=== PATIENT | male | born 1970 | race Caucasian/White ===

== ENCOUNTER → 2022-05-03 08:17 | Outpatient (CLI) | payer BC, SELFPAY | PROVIDERS: PCP Internal Medicine; Referring Provider Internal Medicine; Visit Provider Internal Medicine | DX: M62.551 Muscle wasting and atrophy, not elsewhere classified, right thigh (principal); M54.16 Radiculopathy, lumbar region | CPT/HCPCS: 95886; 95909 ==

== ENCOUNTER → 2023-07-13 08:34 | Outpatient (CLI) | payer BC, SELFPAY ==
[2023-07-13 09:59] LABS: Add Manual Diff / Slide Review NO; Basophils Absolute Auto 0 /uL (0-100); Basophils Percent Auto 0.9 % (0-2); Eosinophils Absolute Auto 100 /uL (0-450); Eosinophils Percent Auto 3.1 % (2-4); Hematocrit 40.7 % (41-53); Hemoglobin 13.9 g/dL (13.5-17.5); Lymphocytes Absolute Auto 1600 /uL (1100-4500); Lymphocytes Percent Auto 33.5 % (25-40); Mean Corpuscular HGB Conc 34.1 % (30-36); Mean Corpuscular Hemoglobin 29.4 PG (26-34); Mean Corpuscular Volume 86.4 fL (80-100); Monocytes Absolute Auto 400 /uL (0-900); Monocytes Percent Auto 9.5 % (3-14); Neutrophils Absolute Auto 2500 /uL (1500-7000); Platelet Count 221 X10^3/uL (150-400); Red Blood Cell Count 4.71 X10^6/uL (4.5-5.9); Red Cell Distribution Width 13.3 % (11.6-14.8); White Blood Cell Count 4.7 X10^3/uL (4.5-11.0)
[2023-07-13 11:16] LABS: Alanine Aminotransferase 22 IU/L (<50); Albumin 4.6 g/dL (3.5-5.0); Albumin Globulin Ratio 1.5 (1.0-2.8); Alkaline Phosphatase 57 U/L (38-126); Aspartate Aminotransferase 28 IU/L (17-59); BUN Creatinine Ratio 14.6 (6-22); Bilirubin Total 0.9 mg/dL (0.2-1.3); Blood Urea Nitrogen 13 mg/dL (9-20); Calcium 9.8 mg/dL (8.4-10.2); Carbon Dioxide 26 mmol/L (22-32); Chloride 103 mmol/L (98-107); Cholesterol 126 mg/dL (140-199); Estimated Glomerular Filt Rate > 60 mL/min (>60); Glucose 123 mg/dL (70-100); HDL Cholesterol 35 mg/dL (40-60); HEMOLYSIS < 15 (0-50); LDL Cholesterol Calculated 72 mg/dL (<100); Potassium 4.6 mmol/L (3.4-5.1); Sodium 138 mmol/L (137-145); Total Protein 7.6 g/dL (6.3-8.2); Triglycerides 93 mg/dL (35-150)
[2023-07-13 11:23] LABS: Vitamin D 25 Hydroxy (D3) 32.7 ng/mL (30.0-100.0)
[2023-07-13 11:36] LABS: TSH w/ Reflex to FT4 2.16 uIU/mL (0.47-4.68)
[2023-07-13 11:54] LABS: Vitamin B12 266 pg/mL (239-931)
[2023-07-15 15:49] LABS: HIV 1 & 2 Ab/Ag 4th Gen Combo NEGATIVE (NEGATIVE)
== END ==
LOC: LAB 08:35
PROVIDERS: PCP Family Medicine; Referring Provider Family Medicine; Visit Provider Family Medicine
DX: Z13.220 Encounter for screening for lipoid disorders (principal); Z13.1 Encounter for screening for diabetes mellitus; Z11.4 Encounter for screening for human immunodeficiency virus [HIV]; E78.2 Mixed hyperlipidemia; R53.83 Other fatigue; R29.898 Other symptoms and signs involving the musculoskeletal system
CPT/HCPCS: 36415; 80053; 80061; 82306; 82607; 83036; 84443; 85025; 87389

== ENCOUNTER → 2023-07-23 09:44 | Outpatient (CLI) | payer BC, SELFPAY ==
--- NOTE | 2023-07-23 09:45 | DI.RAD.S_ITS ---
PROCEDURE: XR LUMBAR SPINE MIN 4V INDICATIONS: LOW BACK PAIN TECHNIQUE: 5 views of the lumbar spine were acquired, including bilateral oblique views. COMPARISON: None. FINDINGS: Bones: 5 nonrib-bearing vertebrae are present. Mild levocurvature of the lumbar spine. Straightening of normal lumbar lordosis. Mild degenerative changes are most pronounced at L5-S1 with disc height loss, degenerative endplate changes and spurring. Mild facet arthropathy of the lower lumbar spine. No vertebral body compression fractures. No suspicious bony lesions. Soft tissues: Overlying bowel gas pattern is normal. No suspicious soft tissue calcifications. Oblique images: No pars defects. IMPRESSION: Mild degenerative changes of the lumbar spine. Dictated by: Raphael Payne M.D. on 07/23/2023 at 10:54 Approved by: Raphael Payne M.D. on 07/23/2023 at 10:55
[2023-07-23 11:57] LABS: Folate 10.4 ng/mL (2.76-20.0)
[2023-07-24 04:09] LABS: Homocysteine 10.9 umol/L (0.0-14.5)
[2023-07-25 04:54] LABS: Methylmalonic Acid,Serum 187 nmol/L (0-378)
== END ==
PROVIDERS: PCP Family Medicine; Referring Provider Family Medicine; Visit Provider Family Medicine
DX: M51.36 Other intervertebral disc degeneration, lumbar region (principal); E53.8 Deficiency of other specified B group vitamins; R53.82 Chronic fatigue, unspecified
CPT/HCPCS: 36415; 72110; 82746; 83090; 83921

== ENCOUNTER 2023-10-08 14:20 | Day surgery (SDC) | payer BC, SELFPAY ==
[2023-10-08] MEDS: LACTATED RINGERS 1,000 ML 100 ML IV (15:37)
[2023-10-08 15:38] VITALS: BP 133/81; PULSE 95; RESP 16; TEMP 36.4; O2SAT 96
--- NOTE | 2023-10-08 15:49 | PM.HP.1 ---
History of Present Illness History of Present Illness Date Patient Seen: 10/08/23 Time Patient Seen: 15:49 Chief complaint: Colonoscopy Narrative: 53-year-old man here for 1st time screening colonoscopy. No family history of intestinal malignancy. No abdominal concerns today. [facility] Medical History Lumbar spondylosis Lumbar facet arthropathy Lumbar radiculopathy Rosacea Shoulder pain (~1997) Chronic back pain Tinnitus (~1988) Mixed hyperlipidemia Surgical History Anesthesia History of discectomy (~2002) Family History Father Hypertension Mother Neuroendocrine cancer Social History Smoking Status: Former smoker alcohol intake: former substance use type: does not use Meds Home Medications and Allergies Home Medications Medication Instructions Recorded Confirmed Type rosuvastatin 10 mg tablet 10 mg PO ONCE PM 10/08/23 10/08/23 History Allergies Allergy/AdvReac Type Severity Reaction Status Date / Time No Known Drug Allergies Allergy Verified 10/08/23 15:33 Exam Vital Signs (past 8 hours): - 10/08/23 15:38 Temperature 97.6 F Pulse Rate 95 H Respiratory Rate 16 Blood Pressure 133/81 Pulse Oximetry 96 Oxygen Delivery Method Room Air Oxygen Delivery Method Room Air Narrative Exam Narrative: General adult man alert oriented no acute distress Chest nonlabored respiration Extremities warm well perfused Assessment & Plan Assessment & Plan narrative: The patient requires colorectal screening and colonoscopy is recommended. Technical details were discussed. Risks, benefits, alternatives explained. Risks including but not limited to myocardial infarction, aspiration, bleeding, pain, missed lesion, incomplete examination, need for further radiographic studies, intestinal injury, and need for major abdominal surgery were discussed. All questions were answered to their satisfaction, and they are in agreement with this plan.
--- NOTE | 2023-10-08 15:50 | P.OP.COLON_ITS ---
Operative Date/Time/Diagnoses Date of procedure: 10/08/23 Time of procedure: 15:50 Pre-op diagnosis: Colorectal screening Procedure & Clinicians Study performed: Screening colonoscopy Same procedure as scheduled: Yes Indications: Colorectal screening Surgeon: Savage Soto Procedure Notes Procedure in detail: The history and physical was performed/updated and the patient is ASA class is 2. The procedure was discussed in detail with the patient. Potential risks co mplications including infection, bleeding, missed diagnosis, perforation, need for surgery, and were explained. Their questions were answered and informed consent was obtained. Patient was brought to the procedure room and placed standard monitoring equipment. The patient's vital signs were monitored continuously throughout the entire procedure. Prior to starting time-out was performed. The patient was placed in the left lateral recumbent position. Procedural sedation was administered by anesthesia. Examination began with a thorough inspection of the perianal area there was no evidence of fissures, fistulae, external hemorrhoids or cutaneous malignancy. The colonoscopy scope was then placed into the anal canal and was advanced to the cecum, which was identified by the ileocecal valve, the appendiceal orifice and the confluence of the taenia. The scope was then slowly withdrawn examining colon thoroughly in all directions, irrigating it of any residual stool. The scope was retroflexed within the rectum The patient tolerated the procedure well. They will be discharged once criteria are met. The prep was of good/excellent quality. The withdrawl time was 7 minutes. FINDINGS * Moderate diverticulosis of the descending colon * No masses polyps or inflammation Specimen(s): none sent Impression: Diverticulosis Post-procedure Recommendations: Colonoscopy in 10 years and High fiber diet Disposition: same day surgery
[2023-10-08 16:17] VITALS: BP 110/78; PULSE 81; RESP 17; TEMP 36.2; O2SAT 97
[2023-10-08 16:22] VITALS: BP 117/82; PULSE 76; RESP 14; O2SAT 96
[2023-10-08 16:27] VITALS: BP 116/76; PULSE 73; RESP 16; O2SAT 97
[2023-10-08 16:30] VITALS: BP 125/62; PULSE 86; RESP 16; TEMP 36.7; O2SAT 98
== END 2023-10-08 16:41 | disposition home or self-care (01) ==
PROVIDERS: PCP Family Medicine; Referring Provider Surgery; Visit Provider Surgery
PROC: 0DJD8ZZ Inspection of Lower Intestinal Tract, Via Natural or Artificial Opening Endoscopic (ICD-10-PCS; CPT 45378; principal; 2023-10-08 14:30)
DX: Z12.11 Encounter for screening for malignant neoplasm of colon (principal); K57.30 Diverticulosis of large intestine without perforation or abscess without bleeding
CPT/HCPCS: 45378; J2250; J2704

== ENCOUNTER 2023-12-25 14:30 | Outpatient (CLI) | payer BC, SELFPAY ==
[2023-12-25 14:35] VITALS: BP 142/80; PULSE 82; RESP 16; TEMP 36.6; O2SAT 97
[2023-12-25 14:55] VITALS: BP 160/76; PULSE 82; RESP 15; O2SAT 98
[2023-12-25] MEDS: iopamidoL 15 ML VIAL 3 ML INJ (14:56)
[2023-12-25] MEDS: DEXAMETHASONE 10 MG/ML VIAL 20 MG INJ (14:56)
[2023-12-25 15:00] VITALS: BP 154/76; PULSE 81; RESP 12; O2SAT 98
[2023-12-25 15:05] VITALS: BP 149/72; PULSE 79; RESP 12; O2SAT 98
[2023-12-25 15:11] VITALS: BP 145/78; PULSE 90; RESP 16; O2SAT 96
--- NOTE | 2023-12-25 15:14 | P.PCN_ITS ---
Date/Time/Diagnoses Date of procedure: 12/25/23 Time of procedure: 15:00 Procedure Notes Physician: Josiah Baxter Total Fluoroscopy time (seconds): 31 Total sedation minutes: 0 Procedure in detail & Post-procedure care: Right L5-S1 and right S1 Transforaminal Epidural Steroid Injection Indications: Bryn is presenting for treatment of lumbar radiculopathy with low back and leg pain. Preoperative diagnosis: Lumbar radiculopathy Postoperative diagnosis: Same Focused Examination: Ax3 Mood and affect are normal Vital Signs: VSS Consent: Following review of allergies and potential side effects/complications, including, but not necessarily limited to, infection, allergic reaction, local tissue breakdown, stroke, temporary or permanent nerve injury, paralysis, and possible , the patient indicated that they understood and agreed to proceed.? An informed consent document was signed by the patient, witnessed by a nurse and placed in the patient's chart.? Additionally, other treatment options including medications and physical therapy were reviewed with the patient. All questions were answered. Site was then marked. Anesthesia: Local Position: Prone Monitoring: NIBP, Pulse oximetry, 3 lead EKG Needle used: 22 gauge, 5 inch spinal needle 4 L5-S1; 22 gauge, 3.5 in spinal needle for S1 Contrast: Isovue 300M Injectate: 7.5 mg Dexamethasone mixed with 1% lidocaine 1 ml and normal saline 1 mL per level Technique: The skin was prepped with chloraprep and draped in a sterile fashion. Time out was performed as per protocol. Oxygen applied via NC. Skin and subcutaneous structures of the needle entry site were infiltrated with 3mL of lidocaine 1%. Under fluoroscopic guidance, using an ipsilateral oblique view,?a 22 gauge 5 inch needle was advanced to the base of the right L5?pedicle.? The needle was advanced to the superio-posterior aspect of the neural foramen under lateral view.? Oblique and AP views were rechecked. No paresthesias noted by the patient during needle placement. In AP view and utilizing real-time digital subtraction fluoroscopy, 2 ml contrast was slowly injected. Epidural spread was observed without evidence for intravascular nor intrathecal uptake. Contrast spread was seen craniocaudally. The above injectate was then administered without paresthesias and the needle was subsequently withdrawn. Band-Aids applied to injection sites. Skin and subcutaneous structures of the needle entry site were infiltrated with 3mL of lidocaine 1%. Under fluoroscopic guidance, using an ipsilateral oblique view,?a 22 gauge 3.5 inch needle was advanced to the superolateral border of the right S1 foramen.? The needle was advanced to the superolateral aspect of the neural foramen under lateral view.?AP views were rechecked. No paresthesias noted by the patient during needle placement. In AP view and utilizing real-time digital subtraction fluoroscopy, 2 ml contrast was slowly injected. Epidural spread was observed without evidence for intravascular nor intrathecal uptake. The above injectate was then administered, and the needle was subsequently withdrawn. EBL: less than 1 ml Complications: None Post Procedure: Patient was taken to the recovery and monitored. The patient was provided a Pain Log to continue to record the patient's response to the target- specific procedure prior to the patient's follow-up visit with the referring physician. Patient was stable upon discharge. Detailed post procedure instructions were provided. Patient was asked to call in the event of worsening pain, fever, weakness, numbness or bladder or bowel incontinence.
--- NOTE | 2023-12-25 15:15 | DI.RAD.S_ITS ---
PROCEDURE: PAIN L/S TRANSFORAMINAL INJECT INDICATIONS: Right L5-S1 and right S1 transforaminal DARLINE COMPARISON: None. FINDINGS: Fluoroscopic spot filming was performed to verify placement of spinal needles at the L5-S1 level(s), as labeled on the films. Appropriate location(s) of the needle tip(s) was confirmed by injection of iodinated contrast. IMPRESSION: Fluoro guidance was provided intraoperatively for right L5-S1 and right S1 transforaminal DARLINE performed by ordering physician. Dictated by: Flavio Samuel M.D. on 12/25/2023 at 17:37 Approved by: Flavio Samuel M.D. on 12/25/2023 at 17:40
== END 2023-12-25 15:17 | disposition home or self-care (01) ==
PROVIDERS: PCP Family Medicine; Referring Provider Anesthesiology; Visit Provider Anesthesiology
DX: M54.16 Radiculopathy, lumbar region (principal)
CPT/HCPCS: 64483; 64484; J1100

== ENCOUNTER → 2024-08-10 07:58 | Outpatient (CLI) | payer BC, SELFPAY ==
[2024-08-10 08:42] LABS: Hematocrit 38.6 % (41-53); Hemoglobin 13.2 g/dL (13.5-17.5); Mean Corpuscular HGB Conc 34.2 % (30-36); Mean Corpuscular Hemoglobin 29.5 PG (26-34); Mean Corpuscular Volume 86.3 fL (80-100); Platelet Count 210 X10^3/uL (150-400); Red Blood Cell Count 4.47 X10^6/uL (4.5-5.9); Red Cell Distribution Width 13.3 % (11.6-14.8); White Blood Cell Count 5.3 X10^3/uL (4.5-11.0)
[2024-08-10 10:12] LABS: Alanine Aminotransferase 26 IU/L (<50); Albumin 4.5 g/dL (3.5-5.0); Albumin Globulin Ratio 1.9 (1.0-2.8); Alkaline Phosphatase 68 U/L (38-126); Aspartate Aminotransferase 27 IU/L (17-59); BUN Creatinine Ratio 17.2 (6-22); Bilirubin Total 0.7 mg/dL (0.2-1.3); Blood Urea Nitrogen 16 mg/dL (9-20); Calcium 9.5 mg/dL (8.4-10.2); Carbon Dioxide 22 mmol/L (22-32); Chloride 106 mmol/L (98-107); Cholesterol 147 mg/dL (140-199); Estimated Glomerular Filt Rate > 60 mL/min (>60); Globulin 2.4 g/dL (1.7-4.1); Glucose 124 mg/dL (70-100); HDL Cholesterol 36 mg/dL (40-60); HEMOLYSIS < 15 (0-50); LDL Cholesterol Calculated 70 mg/dL (<100); Potassium 4.6 mmol/L (3.4-5.1); Sodium 139 mmol/L (137-145); Total Protein 6.9 g/dL (6.3-8.2); Triglycerides 206 mg/dL (35-150)
[2024-08-10 11:09] LABS: Vitamin B12 Reflex MMA if <400 235 pg/mL (239-931)
[2024-08-10 18:32] LABS: Hep C Virus Ab w/Reflex Quant NEGATIVE s/c (NEGATIVE)
[2024-08-13 00:36] LABS: Methylmalonic Acid,Serum 288 nmol/L (0-378)
== END ==
PROVIDERS: PCP Family Medicine; Referring Provider Family Medicine; Visit Provider Family Medicine
DX: R73.03 Prediabetes (principal); E78.2 Mixed hyperlipidemia; Z13.21 Encounter for screening for nutritional disorder; E53.8 Deficiency of other specified B group vitamins; Z11.59 Encounter for screening for other viral diseases; Z13.9 Encounter for screening, unspecified
CPT/HCPCS: 36415; 80053; 80061; 82306; 82607; 83036; 83921; 85027; 86803

== ENCOUNTER → 2024-11-05 15:45 | Outpatient (CLI) | payer BC, SELFPAY ==
--- NOTE | 2024-11-23 12:02 | DIET.OUTPTC ---
Dietary Outpatient Consultation Note Consultation Date: 11/05/2024 Assessment: 54 y M referred for obesity and preDM. Labs: A1c 6.0%, TG 206, TC 147, HDL 36, LDL 70 on rouvastatin 10mg on 08/10/24 Pt reports he is ready to make changes. Has stressful job and would like simple meal plan or easy to implement ideas. Diet recall: B- cheese and eggs or avocado and sourdough toast L-leftovers or sandwich D-frozen meal from [employer] (i.e orange chicken) and rice or potatoes (notes large portion size >1c) 2-3x/wk has dessert of drumstick ice cream Beverages: diet dr pepper occasionally, 2 L of water Supplements include : B12, vit C 1000mg, iron 25 mg MWF, tumeric 500 mg, fish oil 1400 mg, vit D Physical activity: wants to start biking again, would like to bike to work a few times a week Bowel movements everyday type 1-4 on [place] stool chart Ht: 6 ft Wt: pt reports recent weight 238 lb Nutrition Diagnosis: Inadequate fiber intake r/t nutrition related knowledge deficit on importance aeb diet recall showing <30 g fiber per day Physical inactivity r/t stage of change aeb <150 minutes of activity per week Nutrition related knowledge deficit r/t no previous nutrition educ r/t for hyperlipidemia and preDM aeb pt reports wanting to learn about correct dietary patterns Interventions: Discussed and provided handouts on the following -Plate Method, impact of macronutrients on blood sugar, meal timing, carbohydrate counting, pairing macronutrients and spreading out carbohydrates for better blood glucose management -Recommended servings for carbohydrates at meals and snacks -Fiber, amounts, types -Fat, amount to limit to and types -Label reading -Physical activity -Lab values and correlation with nutrition -Discussed realistic weight loss goals (5-7% for diabetes prevention in first 6 months) -Reviewed and compared different dietary patterns and pros and cons based on pt interest (i.e. keto, gutierrez, Mediterranean) -Brainstormed appropriate base line meal plan based on food preference Goals: 45-60 g carbs at lunch and dinner through portion sizing of rice and potatoes to 1 cup Bike on Saturdays Add in 1-2 cups of vegetables at lunch and dinner through frozen veg options at [employer] EER: 35 g fiber per day, 45-60 g CHO at meals, 15-30 g at snacks Monitoring/Evaluations: f/u in 4 weeks Electronically Signed by: Ximena Sheppard 11/23/24 12:02 Clinical Dietitian [address] [id number]
== END ==
PROVIDERS: PCP Family Medicine; Referring Provider Family Medicine
DX: E66.9 Obesity, unspecified (principal); R73.03 Prediabetes; Z71.3 Dietary counseling and surveillance; E78.5 Hyperlipidemia, unspecified
CPT/HCPCS: 97802